=== PATIENT | female | born 1960 | race Caucasian/White ===

== ENCOUNTER → 2018-02-16 | Outpatient (CLI) | payer BC | LOC: LAB.O 07:44 | DX: E78.5 Hyperlipidemia, unspecified (principal); Z13.1 Encounter for screening for diabetes mellitus ==

== ENCOUNTER 2018-02-26 09:09 | Emergency (ER) | payer BC ==
[2018-02-26 09:26] VITALS: TEMP 97.4
[2018-02-26] MEDS: MONTELUKAST 10 MG TAB PO ONE (09:52)
[2018-02-26] MEDS: predniSONE 20 MG TAB PO ONE (09:52)
[2018-02-26] MEDS: IPRATROPIUM/ALBUTEROL 3 ML VIAL NEB ONE (09:55)
[2018-02-26 09:57] VITALS: O2SAT 100
--- NOTE | 2018-02-26 10:07 | RAD ---
Procedure: XR CHEST 2 VIEWS Exam Date: 02/26/2018 9:36 AM CDT Ordering Provider: Yasmany Barr Clinical Indication: wheezing 3 days Comparison: None Findings: The lungs are clear and well-aerated. No pleural effusion or pneumothorax. Cardiac silhouette is normal in size. Impression: No acute pulmonary process. Electronically signed by: Umair Arora MD 02/26/2018 10:06 AM CDT
--- NOTE | 2018-02-26 10:39 | ED.PDOC ---
History of Present Illness - General Chief Complaint: Skin/Abrasion/Tear Stated Complaint: rash Time Seen by Provider: 02/26/18 09:36 Source: patient Exam Limitations: no limitations - History of Present Illness Initial Comments: the patient is a 57-year-old female presenting to the emergency room secondary to what appears to be urticaria along with some increasing shortness of breath over the last 3 days. The patient definitely has urticaria as she does have welts and some mild hives around her neck and also to her inner thighs. This is been going on for the last 3 days. Additionally she does have some audible wheezes. No definite history of asthma though further questioning does indicate that several times a year she does get these 2 problems in combination. It has been suspected in the past that she has allergy-induced asthma. She does not have an inhaler. She takes Claritin daily. She is oxygenating well and in no acute distress. No evidence of any productive cough. No fever. No chest pain. No syncope or near syncope. She is not hypotensive. She is not sure what the trigger is for her. No history of any parasitic infections. No history of any hypereosinophilia. No history of any previous lung problems otherwise. Timing/Duration: unsure Severity: moderate Improving Factors: nothing Worsening Factors: nothing Associated Symptoms: shortness of breath Allergies/Adverse Reactions: Allergies NO KNOWN ALLERGY Allergy (Unverified 07/25/13 09:48) Home Medications: Ambulatory Orders Albuterol Inhaler [Ventolin Hfa Inhaler] 2 puff INH Q4HR PRN #1 inh 02/26/18 Montelukast [Singulair] 10 mg PO DAILY #14 tab 02/26/18 predniSONE [Prednisone] 20 mg PO DAILY #5 tab 02/26/18 Review of Systems - Review of Systems Constitutional: States: no symptoms reported EENTM: States: nose congestion - mild Respiratory: States: short of breath, wheezing Cardiology: States: no symptoms reported Gastrointestinal/Abdominal: States: no symptoms reported Genitourinary: States: no symptoms reported Musculoskeletal: States: no symptoms reported Skin: States: see HPI Neurological: States: no symptoms reported Endocrine: States: no symptoms reported Hematologic/Lymphatic: States: no symptoms reported All other Systems: No Change from Baseline Past Medical History (General) - Patient Medical History Hx Stroke: No Hx Congestive Heart Failure: No Hx Gastroesophageal Reflux: No Surgical History: Hysterectomy - Vaccination History Hx Influenza Vaccination: No Hx Pneumococcal Vaccination: No - Social History Hx Tobacco Use: No Family Medical History - Family History Mother Family History: Unknown Living Status: Unknown Physical Exam - Physical Exam General Appearance: Alert, Comfortable, No apparent distress Eye Exam: bilateral normal Ears, Nose, Throat: nasal congestion - mild Neck: full range of motion, supple Respiratory: chest non-tender, no respiratory distress, no accessory muscle use , wheezing - scattered Cardiovascular/Chest: normal peripheral pulses, regular rate, rhythm, no edema Peripheral Pulses: radial,right: 2+, radial,left: 2+, dorsalis pedis,right: 2+, dorsalis pedis,left: 2+ Gastrointestinal/Abdominal: non tender, soft Rectal Exam: deferred Back Exam: normal inspection, no CVA tenderness, no vertebral tenderness Extremity: normal range of motion, non-tender, no pedal edema, normal capillary refill Neurologic: apartment leasing agent II-XII nml as tested, no motor/sensory deficits, alert, normal mood/affect, oriented x 3 Skin Exam: other - scattered hives as stated above Comments: Vital Signs - 24 hr 02/26/18 02/26/18 09:24 09:56 Temperature 97.4 F L Pulse Rate 61 Pulse Rate [ 78 Left Brachial] Respiratory 20 18 Rate Blood Pressure 146/83 [Left Arm] O2 Sat by Pulse 96 100 Oximetry Progress - Progress Progress: 02/26/18 10:41 the patient is 57-year-old female that is presenting with an episode of urticaria and associated allergy induced asthma. Episodes of both are mild. The patient was given a breathing treatment and a dose of prednisone here with some improvement in both already. She will be written for an albuterol inhaler for as needed use as well as for prednisone 20 mg for the next 5 days. Additionally I am going to place the patient on Singulair 10 mg a day for the next 2 weeks. She can continue her Claritin daily as well. She needs to keep herself well-hydrated. She needs to follow back up with her primary care doctor later this coming week for reevaluation. If she is having significant persistent symptoms and she may require additional workup in the future. Chest x-ray here fails to show any significant infiltrate or acute changes. ER warnings were given. Departure - Departure Clinical Impression: Urticaria Asthma, allergic Qualifiers: Asthma severity: mild intermittent Asthma complication type: with acute exacerbation Qualified Code(s): J45.21 - Mild intermittent asthma with (acute) exacerbation Disposition: Discharge to Home or Self Care Condition: Fair Departure Forms: ED Discharge - Pt. Copy, Patient Portal Self Enrollment Instructions: Hives, Asthma in Adults Diet: regular diet Activity: increase activity as tolerated Referrals: Hector Peña MD [Primary Care Provider] - 1-5 Days Prescriptions: Albuterol Inhaler [Ventolin Hfa Inhaler] 2 puff INH Q4HR PRN #1 inh PRN Reason: Wheezing Montelukast [Singulair] 10 mg PO DAILY #14 tab predniSONE [Prednisone] 20 mg PO DAILY #5 tab Home Medications: Ambulatory Orders Albuterol Inhaler [Ventolin Hfa Inhaler] 2 puff INH Q4HR PRN #1 inh 02/26/18 Montelukast [Singulair] 10 mg PO DAILY #14 tab 02/26/18 predniSONE [Prednisone] 20 mg PO DAILY #5 tab 02/26/18 Additional Instructions: the patient is 57-year-old female that is presenting with an episode of urticaria and associated allergy induced asthma. Episodes of both are mild. The patient was given a breathing treatment and a dose of prednisone here with some improvement in both already. She will be written for an albuterol inhaler for as needed use as well as for prednisone 20 mg for the next 5 days. Additionally I am going to place the patient on Singulair 10 mg a day for the next 2 weeks. She can continue her Claritin daily as well. She needs to keep herself well-hydrated. She needs to follow back up with her primary care doctor later this coming week for reevaluation. If she is having significant persistent symptoms and she may require additional workup in the future. Chest x-ray here fails to show any significant infiltrate or acute changes. ER warnings were given.
[2018-02-26 10:58] VITALS: BP 124/76
== END 2018-02-26 10:58 | disposition home or self-care (01) ==
LOC: ER 09:09
DX: L50.9 Urticaria, unspecified (principal); J45.21 Mild intermittent asthma with (acute) exacerbation
CPT/HCPCS: 71046; 94640; J7512; J7620

== ENCOUNTER → 2019-06-19 | Outpatient (CLI) | payer BC | LOC: GMA MATASK 10:36 | PROVIDERS: ATTEND Family Medicine | DX: Z00.00 Encounter for general adult medical examination without abnormal findings (principal) ==